=== PATIENT | male | born 1930 ===

== ENCOUNTER 2020-03-28 12:34 | Outpatient (CLI) | payer MEDICARE ==
[2020-03-28] MEDS ORDERED: IOVERSOL 320 100 ML VIAL IVP ONE ×2 (12:48→13:03)
--- NOTE | 2020-03-28 15:07 | CT Report ---
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 Additional oblique axial 3.0 mm sections acquired through the pharynx. 3 mm thick co gosia reformats were generated. For radiation dose reduction, the following was used: automated exp osure control, adjustment of mA and/or kV according to patient size. COMPARISON: None available at the time of this dictation. FINDINGS: Image quality: Excellent. Lymph nodes: No enlarged lymph nodes seen throughout the neck. Vessels: Visualized vasculature appears patent. Neck spaces: In this patient with this given history, scrutiny is given to the left tongue base. No f ocal mass or abnormal enhancement can be seen at this site. There is asymmetric fullness seen within the right peritonsillar region, as on series 3 image 62 and on series 5 image 41. At this site, there is an apparent ring-enhancing cystic lesion that measures u p to 11 mm The vocal cords, false vocal cords, pyriform sinuses, epiglottis, and the vallecula all appear normal . Extramucosal spaces appear unremarkable. Glands: The parotid and submandibular glands appear normal. The thyroid is normal in size. Miscellaneous: Visualized brain and orbits appear normal. Lung apices appear clear. Superficial so ft tissues appear normal. Bones: No suspicious bony lesions. Visualized sinuses and mastoids appear unremarkable. Moderate c ervical spine degenerative changes can be seen. IMPRESSION: No recurrent masses can be seen at the left tongue base. No enlarged lymph nodes are seen. There is asymmetric fullness seen of the right peritonsillar region, with an apparent rim-enhancing c ystic lesion that measures up to 11 mm. If clinically appropriate, please consider further evaluation via laryngoscopy. Reviewed by: Chaparro Ernst MD on 03/28/2020 2:05 PM [place] Approved by: Chaparro Ernst MD on 03/28/2020 2:05 PM [facility] Station ID: [id number]
== END 2020-03-28 12:35 | disposition home or self-care (01) ==
LOC: DI 12:34
PROVIDERS: ATTEND Physician Assistant
DX: C02.9 Malignant neoplasm of tongue, unspecified (principal); Z13.89 Encounter for screening for other disorder; R22.1 Localized swelling, mass and lump, neck
CPT/HCPCS: 70491; Q9967

== ENCOUNTER 2020-04-08 11:14 | Outpatient (CLI) | payer MEDICARE | END 2020-04-08 11:15 | disposition home or self-care (01) | LOC: LAB 11:14 | PROVIDERS: ATTEND Otolaryngology | DX: C02.2 Malignant neoplasm of ventral surface of tongue (principal); Z20.822 Contact with and (suspected) exposure to COVID-19 ==